=== PATIENT | female | born 1960 | race Caucasian/White ===

== ENCOUNTER 2019-08-14 13:26 | Emergency (ER) | payer OTHER ==
[2019-08-14] MEDS ORDERED: IBUPROFEN 600 MG TABLET PO STA (13:50)
[2019-08-14] MEDS ORDERED: ACETAMINOPHEN 325 MG TABLET PO STA (13:50)
[2019-08-14] MEDS ORDERED: IPRATROPIUM/ALBUTEROL 3 ML NEB INH STA (13:51)
--- NOTE | 2019-08-14 13:51 | ED Physician Documentation ---
History of Present Illness - Stated complaint Stated Complaint: FEVER/CONGESTION - Chief complaint Chief Complaint: Fever - Additonal information Additional information: This is a 59-year-old female who presents with cough, fever, body aches,And some mild intermittent shortness of breath for 4 days. She states that the symptoms got much worse over last 2 days. She has nasal drainage, a cough productive of some clear sputum, she intermittently feels a bit winded, especially after coughing. She has some mild soreness of her ribs related to coughing, but no other chest pain. She denies abdominal pain. Fever has been Up to 102 F. No dysuria. Review of Systems Constitutional: reports: Fever Nose: reports: Rhinorrhea / runny nose Cardiac: denies: Palpitations Respiratory: reports: Dyspnea, Cough : denies: Dysuria Immunocompromised: denies: Immunocompromised PD PAST MEDICAL HISTORY - Past Medical History Past Medical History: Yes Cardiovascular: High cholesterol Neuro: Migraines - Past Surgical History Past Surgical History: Yes - Present Medications Home Medications: Ambulatory Orders Medication Instructions Recorded Confirmed Albuterol Sulfate [Proair 90 mcg IH QID PRN #1 [email or web address] 08/14/19 Respiclick] Doxycycline Hyclate 100 mg PO BID #20 capsule 08/14/19 - Allergies Allergies/Adverse Reactions: Allergies Allergy/AdvReac Type Severity Reaction Status Date / Time Sulfa (Sulfonamide Allergy Unknown Verified 08/14/19 13:28 Antibiotics) - Living Situation Living Situation: reports: With family Living Arrangement: reports: At home - Family History Family history: reports: Non contributory PD ED PE NORMAL - Vitals Vital signs reviewed: Yes - General General: Alert and oriented X 3, No acute distress - HEENT HEENT: PERRL - Neck Neck: Supple, no meningeal sign - Cardiac Cardiac: RRR, No murmur - Respiratory Respiratory: Other (Expiratory wheeze diffusely, L sided crackles. normal work of breathing.) - Abdomen Abdomen: Non distended - Derm Derm: Warm and dry - Extremities Extremities: No deformity - Neuro Neuro: Alert and oriented X 3 - Psych Psych: Normal mood, Normal affect Results - Vitals Vitals: Vital Signs - 24 hr 08/14/19 08/14/19 08/14/19 14:11 15:00 15:04 Temperature 37.3 C Heart Rate 80 88 Respiratory 18 16 Rate Blood Pressure 121/76 O2 Saturation 93 Oxygen O2 Source Room air - Labs Labs: Laboratory Tests 08/14/19 13:35 Influenza A (Rapid) Negative Influenza B (Rapid) Negative - Rads (name of study) CXR Radiology: Other (L sided pneumonia) PD MEDICAL DECISION MAKING - ED course Complexity details: considered differential (URI, PNA, PTX, effusion, mass, bronchitis) ED course: Pt is non-toxic appearing on exam, she does have wheezing and L sided crackles. No history of COPD or asthma. XR shows a L upper lobe pneumonia, which fits with her exam and symptoms. Presentation makes PE, ACS highly unlikely. Duoneb was given and afterwards wheezing resolved and pt felt better. She has normal work of breathing, O2 sat in the mid 90s on room air, and appears appropriate for trial of outpatient therapy. We will treat with doxycycline for CAP. I also prescribed an albuterol inhaler. I reviewed return precautions and PCP follow up and she was discharged home in good condition in the care of family. Departure - Departure Disposition: 01 Home, Self Care Clinical Impression: Pneumonia Qualifiers: Pneumonia type: due to unspecified organism Laterality: left Lung location: upper lobe of lung Qualified Code(s): J18.9 - Pneumonia, unspecified organism Condition: Good Instructions: ED Pneumonia Adult Prescriptions: Albuterol Sulfate [Proair Respiclick] 90 mcg IH QID PRN #1 [email or web address] PRN Reason: Wheezing Doxycycline Hyclate 100 mg PO BID #20 capsule Comments: You have a pneumonia. Please take the antibiotics as prescribed. You may also take Tylenol 650 mg and ibuprofen 600 mg every 6 hours as needed for fever or discomfort. You may also try the albuterol inhaler. If you feel that your breathing is getting worse, you are not having improvement, or having any other new concerning symptoms, return to the emergency department Discharge Date/Time: 08/14/19 15:05
--- NOTE | 2019-08-14 14:17 | XRAY Report ---
Reason: Cough, shortness of breath Procedure Date: 08/14/2019 Accession Number: [id number] / [id number] Procedure: XR - Chest 2 View X-Ray CPT Code: 91019 Final Report FULL RESULT: EXAM: CHEST RADIOGRAPHY EXAM DATE: 08/14/2019 01:54 PM. CLINICAL HISTORY: Cough, shortness of breath. COMPARISON: None. TECHNIQUE: 2 views. FINDINGS: Lungs/Pleura: Consolidative opacity is seen in left upper lobe, suggestive of pneumonia. No pleural effusion. No pneumothorax. Normal volumes. Mediastinum: Heart and mediastinal contours are unremarkable. Other: None. IMPRESSION: A consolidative opacity in left upper lobe, suggestive of pneumonia. RADIA
[2019-08-14] MEDS ORDERED: DOXYCYCLINE 100 MG TABLET PO STA (14:52)
[2019-08-14 15:01] VITALS: BP 121/76
== END 2019-08-14 15:05 | disposition home or self-care (01) ==
LOC: ED 13:26
DX: J18.9 Pneumonia, unspecified organism (principal)
CPT/HCPCS: 71046; 87275; 87276; 94640; 99284; A9270